=== PATIENT | male | born 1965 | race Caucasian/White ===

== ENCOUNTER 2019-09-26 14:04 | Outpatient (CLI) | payer OTHER, SELFPAY ==
--- NOTE | ~2019-09-26 | XR_ITS ---
EXAMINATION: XR wrist RT min 3V DATE: 09/26/2019 14:38 INDICATION: Right wrist pain. TECHNIQUE: 4 views of right wrist were obtained. COMPARISON: None. FINDINGS: Bone alignment is normal. No fracture. There is moderate osteoarthritis of radioscaphoid noni int. IMPRESSION: 1. Moderate osteoarthritis of radioscaphoid joint. Reviewed, dictated and finalized at location B.
== END 2019-09-26 14:05 | disposition home or self-care (01) ==
PROVIDERS: PCP Family Medicine; Visit Provider Family Medicine
DX: M19.031 Primary osteoarthritis, right wrist (principal)
CPT/HCPCS: 73110

== ENCOUNTER 2019-12-27 12:30 | Outpatient (RCR) | payer OTHER, SELFPAY ==
--- NOTE | 2019-10-25 15:50 | OTOPEVAL ---
OCCUPATIONAL THERAPY INITIAL EVALUATION: 10/25/2019 Thank you for referring Simon Penn to [facility].? The patient is scheduled to be seen for therapy?2 x/week for 4 weeks. Please review, sign, date and return this plan of care KARINA. I agree with and certify that the following plan of care is medically necessary. Referring Physician Date Attending Provider: Rena Ybarra, *OT Outpatient Evaluation Start: 10/25/19 14:35 Freq: Status: Active Protocol: Document 10/25/19 14:40 KJL (Rec: 10/25/19 15:50 KJL [email or web address]) Therapy Assessment Status Assessment Status Evaluation Evaluation Information Problem Diagnosis R wrist pain, from x-ray in chart OA in radioscaphoid joint Onset January 2019 Cause slowly progressed Additional Evaluation Detail Pt presents to OP OT for evaluation with pain in R wrist, from x-ray in chart review showed no acute fx, showed moderate osteoarthritis of radioscaphoid joint. Subjective Information Pt reports pain began in Query Text:As Reported By Patient/ January of 2019 and has Family progressed on the thenar aspect of R hand and dorsal/ lateral aspect of thumb. Pt reports able to still complete all ADLs but is having pain throughout daily tasks including tasks that include gripping, grasping, pulling. Pt reports uses hands for wood working, molding virgen, and outdoor activities since wrist began hurting. Prior Level of Function Activity Level (Last 3 Months) Hand Dominance Right Activity of Daily Living Ability Independent Indoor/Home Mobility Independent Community Mobility Independent Stairs Ability Independent Functional Cognition (Planning, Shopping Independent , Taking Medications) Cooking Yes Cleaning Yes Laundry Yes Shopping Yes Driving Yes Home Setting Home Type House Environmental Barriers Stairs, Greater than 4 Living Situation With Parent Support Available Local Family Support Mobility Assistive Devices (Used Last 3 None Months)
--- NOTE | 2019-10-25 16:09 | OTOPEVAL ---
OCCUPATIONAL THERAPY INITIAL EVALUATION: 10/25/2019 Thank you for referring Simon Penn to [facility].? The patient is scheduled to be seen for therapy? 2x/week for 4 weeks. Please review, sign, date and return this plan of care KARINA. I agree with and certify that the following plan of care is medically necessary. Referring Physician Date Attending Provider: Rena Ybarra, *OT Outpatient Evaluation Start: 10/25/19 14:35 Freq: Status: Active Protocol: Document 10/25/19 14:40 KJL (Rec: 10/25/19 15:50 KJL [email or web address]) Therapy Assessment Status Assessment Status Assessment Status Evaluation Evaluation Information Problem Diagnosis R wrist pain, from x-ray in chart OA in radioscaphoid joint Onset January 2019 Cause slowly progressed Additional Evaluation Detail Pt presents to OP OT for evaluation with pain in R wrist, from x-ray in chart review showed no acute fx, showed moderate osteoarthritis of radioscaphoid joint. Subjective Information Pt reports pain began in Query Text:As Reported By Patient/ January of 2019 and has Family progressed on the thenar aspect of R hand and dorsal/ lateral aspect of thumb. Pt reports able to still complete all ADLs but is having pain throughout daily tasks including tasks that include gripping, grasping, pulling. Pt reports uses hands for wood working, molding virgen, and outdoor activities since wrist began hurting. Prior Level of Function Activity Level (Last 3 Months) Hand Dominance Right Activity of Daily Living Ability Independent Indoor/Home Mobility Independent Community Mobility Independent Stairs Ability Independent Functional Cognition (Planning, Shopping Independent , Taking Medications) Cooking Yes Cleaning Yes Laundry Yes Shopping Yes Driving Yes Home Setting Home Type House Environmental Barriers Stairs, Greater than 4 Living Situation With Parent Support Available Local Family Support Mobility Assistive Devices (Used Last 3 N
--- NOTE | 2019-11-20 12:59 | PCOTNOTE ---
Patient called & cancelled scheduled appointment this date due to having to wait for the cable nelsy.
--- NOTE | 2019-11-29 11:40 | OTOPEVAL ---
OCCUPATIONAL THERAPY RE-EVALUATION: 11/29/2019 Thank you for referring Simon Penn to [facility].? The patient is scheduled to be seen for therapy? 2 x/week for 4 weeks. Please review, sign, date and return this plan of care KARINA. I agree with and certify that the following plan of care is medically necessary. Referring Physician Date Attending Provider: Rena Ybarra, *OT Outpatient Re-Evaluation Start: 10/25/19 14:35 Freq: Status: Active Protocol: Document 11/29/19 11:06 KJL (Rec: 11/29/19 11:40 KJL [email or web address]) Therapy Assessment Status Assessment Status Assessment Status Re-evaluation Re-Evaluation Information Problem Diagnosis R wrist pain, from x-ray in chart OA in radioscaphoid joint Onset January 2019 Cause slowly progressed Additional Evaluation Detail Pt presents to OP OT for re- evaluation after 7 treatments with pain in R wrist, from x- ray in chart review showed no acute fx, showed moderate osteoarthritis of radioscaphoid joint. Subjective Information Pt reports since coming to Query Text:As Reported By Patient/ therapy is not able to write Family and is experiencing decreased pain overall but still has instances of having pain with certain movements and after certain activities. Pain Assessment Timing of Pain Assessment Timing of Pain Assessment Assessment Pain Scale Pain Scale Used Numeric (1 - 10) Self Report Pain Assessment Right Wrist(s) Reported Pain Level 3 Pain Description Aching Pain Score Pain Score 3: Self Report Upper Extremity Range of Motion General Upper Extremity Range of Motion Reason Not Measured WNL/Left Wrist Range of Motion Right Reason Not Measured WNL/Left Wrist Flexion - Active 50 Wrist Extension - Active 25 Wrist Radial Deviation - Active 10 Wrist Ulnar Deviation - Active 16 Wrist Range of Motion Limitations Pain Wrist Range of Motion Comments AROM of wrist flexion increased from 45 degrees to 50 degrees AROM of wrist extension increased from 20 degrees to 25 degrees AROM of wrist radial deviation increased from 5 degrees to
--- NOTE | 2019-12-27 13:20 | OTOPEVAL ---
OCCUPATIONAL THERAPY DISCHARGE NOTE 12/27/2019 Simon presents for re-evaluation after 2 months of therapy. He appears to have made progress with pain reduction, however, he verbalizes concerns about the pain returning as he progresses toward normal use of the hand again. It is recommended that the patient continue to wear the brace during heavy tasks and to continuously utilize proper body mechanics to reduce distal strain. He verbalizes his understanding. Discharge today with patient independent with all materials. Thank you for referring Simon Penn to [facility].? Please review, sign, date and return this Discharge Note KARINA. I agree with and certify that the following plan of care is medically necessary. Referring Physician Date Referring Provider: Rena Ybarra, MD *OT Outpatient Evaluation Evaluation Information Problem Diagnosis R wrist pain Additional Evaluation Detail X-ray (+) moderate osteoarthritis of radioscaphoid joint Simon has been participating in outpatient OT since 10/25/19 for right wrist pain consistent with x-ray findings of OA. He does have a history of right wrist fracture 30 years ago as well as a wrist strain about 12 years ago. OT has been focusing on pain and inflammation reduction, body mechanics and work simplification education, ROM, isometric strengthening of the wrist, isotonic strengthening of the shoulder and elbow. Subjective Information Pt reports since coming to Query Text:As Reported By Patient/ therapy he has improved with Family his ability to use the right hand/wrist with greater ROM, less stiffness, and somewhat less pain. Functionally he reports improved ability with writing and with light ADLs such as cooking and cleaning. He continues to report instances of having pain with certain movements and after certain activities. He does note that there are times now that his pain gets down to 0/ 10. He has concerns about the wrist not getting any better and plans to follow up with an
== END 2019-12-28 09:32 | disposition home or self-care (01) ==
LOC: ANHOT 12:30
PROVIDERS: PCP Family Medicine; Visit Provider Family Medicine
DX: M25.531 Pain in right wrist (principal)
CPT/HCPCS: 97018; 97035; 97110; 97140; 97165

== ENCOUNTER 2021-07-11 13:31 | Emergency (ER) | payer OTHER, SELFPAY ==
[2021-07-11 13:54] VITALS: BP 128/76; PULSE 78; RESP 18; TEMP 36.3; O2SAT 98
--- NOTE | 2021-07-11 14:38 | ED.GENADULT ---
HPI - General Adult General Chief complaint: Skin/Abscess/Foreign Body Stated complaint: rash History of Present Illness HPI narrative: Patient is a 56-year-old male who presents to the [facility] via POV for evaluation of a rash located on right upper back that has been present since yesterday morning. Additionally, he reports the area to be erythematous, painful and hot . Nothing improves rash. When his shirt touches rash it increases pain. No relief with Tylenol. Patient is up-to-date on all vaccinations. Related Data Home Medications Medication Instructions Recorded Confirmed famotidine 20 mg tablet 1 tablet DIRECTED 07/11/21 07/11/21 gabapentin 300 mg capsule 300 cap DIRECTED 07/11/21 07/11/21 ketoconazole 2 % topical cream 1 applic topical DIRECTED 07/11/21 07/11/21 [id number] 497 1 cap PO DIRECTED 07/11/21 07/11/21 mg(20,000-75K-66.4K unit)capsule,delay rel Allergies Allergy/AdvReac Type Severity Reaction Status Date / Time No Known Allergies Allergy Unknown Verified 07/11/21 14:18 Review of Systems Review of Systems: Denies fever, chills, sweats, change in appetite, poor p.o. intake, abdominal pain, nausea, vomiting, diarrhea, cough, chest pain, shortness of breath, heart palpitations, paresthesias, loss of sensation, streaking, bleeding, and drainage PMFSH Comments I have reviewed and agree with the patient's past medical, surgical, social, and family hx as documented by the RN. There is no relevant family history pertinent to the presenting complaint. Exam Narrative: GENERAL: Well-appearing, well-nourished, and in no acute distress. HEAD: Normocephalic, atraumatic. No facial swelling appreciated. EYES: PERRLA and EOMI. No evidence of erythema, swelling, or drainage. ENT: Nares clear, no rhinorrhea or epistaxis.Mucous membranes moist and pink. Uvula is midline without erythema and swelling. No evidence of obstruction, petechial rash, cobblestoning, lesions, ulcers, erythema, swelling, exudates, peritonsillar abscess, tenting, or drooling. Breath odor and voice normal. NECK: Supple. No Lymphadenopathy or nuchal rigidity appreciated. CHEST: Bilateral lung amaral are clear to auscultation. No respiratory distress. No evidence of cough or pleuritic cp upon examination. HEART: Regular rate and rhythm. No murmur, gallop, or rub heard. EXTREMITIES: Normal range of motion. No edema. SKIN: Warm, dry. Moderate rash consistent with shingles noted to upper right back. NEURO: No focal deficits. Alert and oriented x3. SPECIAL OBSERVATIONS: Smiling. Laughing. No evidence of discomfort. Course Course Level of Care: Express Care Visit Vital Signs Vital signs: Vital Signs Temperature 97.4 F L 07/11/21 13:54 Pulse Rate 78 07/11/21 13:54 Respiratory Rate 18 07/11/21 13:54 Blood Pressure 128/76 07/11/21 13:54 Pulse Oximetry 98 07/11/21 13:54 Oxygen Delivery Room Air 07/11/21 13:54 Temperature 97.4 F L 07/11/21 13:54 Pulse Rate 78 07/11/21 13:54 Respiratory Rate 18 07/11/21 13:54 Blood Pressure 128/76 07/11/21 13:54 Pulse Oximetry 98 07/11/21 13:54 Oxygen Delivery Room Air 07/11/21 13:54 Medical Decision Making Differential Diagnosis Differential Diagnosis: Contact/allergic dermatitis, atopic dermatitis, psoriasis, cellulitis, tinea infection, parasite infection, shingles Vital Signs Vital Signs: Vital Signs Temperature 97.4 F L 07/11/21 13:54 Pulse Rate 78 07/11/21 13:54 Respiratory Rate 18 07/11/21 13:54 Blood Pressure 128/76 07/11/21 13:54 Pulse Oximetry 98 07/11/21 13:54 Oxygen Delivery Room Air 07/11/21 13:54 Temperature 97.4 F L 07/11/21 13:54 Pulse Rate 78 07/11/21 13:54 Respiratory Rate 18 07/11/21 13:54 Blood Pressure 128/76 07/11/21 13:54 Pulse Oximetry 98 07/11/21 13:54 Oxygen Delivery Room Air 07/11/21 13:54 Reviewed Critical Care Time Critical Care Time Cr
== END 2021-07-11 14:42 | disposition home or self-care (01) ==
PROVIDERS: Emergency Provider Nurse Practitioner Family
DX: B02.9 Zoster without complications (principal)
CPT/HCPCS: 99213; G0463